=== PATIENT | male | born 1985 | race Caucasian/White ===

== ENCOUNTER 2017-06-07 00:28 | Emergency (ER) | payer OTHER ==
[~2017-06-07] VITALS: Ht 185.4 cm; Wt 95.3 kg
[2017-06-07 00:28] VITALS: BP 141/89
--- NOTE | 2017-06-07 00:56 | NUR ---
LAVAGE TO L EAR, LARGE AMOUNT WAX REMOVED, ER AWARE
== END 2017-06-07 01:08 | disposition home or self-care (01) ==
LOC: ER 00:30
DX: H61.22 Impacted cerumen, left ear (principal); B35.3 Tinea pedis; F10.10 Alcohol abuse, uncomplicated
CPT/HCPCS: 99283; A4606; Z7610

== ENCOUNTER 2018-10-10 21:29 | Emergency (ER) | payer OTHER ==
[~2018-10-10] VITALS: Ht 193 cm; Wt 86.2 kg
--- NOTE | 2018-10-10 21:42 | NUR ---
LFA REDNESS, SWELLING, PAIN S/P IV METH USE X2 DAYS. PT IS HOMELESS, BEEN ON THE STREETS X1 MONTH. PT IS AOX4, AMB, HYPERTENSIVE, TACHYCARDIC, RR EVEN AND UNLABORED ON RA. NO ACUTE DISTRESS NOTED. READY FOR EVAL.
[2018-10-10] MEDS ORDERED: KETOROLAC TROMETHAMINE INJ 30 MG/ML VIAL ONE (21:52)
[2018-10-10] MEDS ORDERED: KETOROLAC TROMETHAMINE INJ 30 MG/ML VIAL IV ONE (22:00)
[2018-10-10] MEDS ORDERED: CLINDAMYCIN 600 MG in IV D5W 100 ML IV ONE (22:00)
[2018-10-10] MEDS ORDERED: IV NS 0.9% 1,000 ML BAG IV ONE (22:00)
[2018-10-10 22:02] LABS: BASOPHILS % (AUTO) 0.2 % (0.0-2.0); HEMATOCRIT 40 % (39-51); HEMOGLOBIN 13.9 g/dL (13.5-17.5); LYMPHOCYTES # (AUTO) 0.9 /CMM (0.8-4.8); LYMPHOCYTES % (AUTO) 6.5 % (20.0-44.0); MEAN CORPUSCULAR HGB CONC 35 g/dl (31.0-36.0); MEAN CORPUSCULAR VOLUME 88 fL (80-96); MONOCYTES # (AUTO) 1.1 /CMM (0.1-1.30); MONOCYTES % (AUTO) 7.5 % (2.0-12.0); NEUTROPHILS # (AUTO) 12.2 /CMM (1.8-8.9); NEUTROPHILS % (AUTO) 85.8 % (43.0-81.0); PLATELET COUNT (AUTO) 254 /CMM (150-450); RED BLOOD CELL COUNT(AUTO) 4.54 MIL/uL (4.5-6.0); WHITE BLOOD COUNT (AUTO) 14.3 K/uL (4.3-11.0)
[2018-10-10] MEDS ORDERED: CLINDAMYCIN 900 MG/6 ML VIAL ONE (22:02)
[2018-10-10 22:12] LABS: CALCIUM, SERUM 8.9 mg/dL (8.5-10.1); CREATININE 0.9 mg/dL (0.6-1.3); POTASSIUM 3.6 mmol/L (3.5-5.1)
--- NOTE | 2018-10-10 22:17 | NUR ---
IV LINE ESTABLISHED AND MEDS GIVEN. IVF AND ABX INFUSING. WILL CONT TO MONITOR.
[2018-10-10 22:18] LABS: ALBUMIN 3.4 g/dL (3.4-5.0); BILIRUBIN,TOTAL 1.5 mg/dL (0.2-1.0); TOTAL PROTEIN, SERUM 7.5 g/dL (6.4-8.2)
[2018-10-10] MEDS ORDERED: LIDOCAINE 1%-EPI 1:100,000 20 ML VIAL ONE (22:31)
--- NOTE | 2018-10-10 22:43 | NUR ---
SHEN LEE AT BEDSIDE FOR I&D
--- NOTE | 2018-10-10 22:51 | NUR ---
[employer] AT BEDSIDE FOR WOUND DRESSING
[2018-10-10] MEDS ORDERED: SULFAMETH/TRIMETH 800/160 MG 1 UDTAB TABLET PO ONE ×2 (22:56→23:00)
[2018-10-10] MEDS ORDERED: CEPHALEXIN MONOHYDRATE 500 MG CAPSULE PO ONE ×2 (22:56→23:00)
--- NOTE | 2018-10-10 23:28 | NUR ---
IV removed. Catheter intact and site benign. Pressure and 4x4 applied to site. No bleeding noted.Patient discharged to home in stable condition. Written and verbal after care instructions given. Patient verbalizes understanding of instruction.
[2018-10-10 23:30] VITALS: BP 142/86
== END 2018-10-10 23:30 | disposition home or self-care (01) ==
LOC: ER 21:29
DX: L02.414 Cutaneous abscess of left upper limb (principal); L03.114 Cellulitis of left upper limb; F19.10 Other psychoactive substance abuse, uncomplicated; F17.210 Nicotine dependence, cigarettes, uncomplicated; Z59.0 Homelessness
CPT/HCPCS: 36415; 80053-TC; 85025-TC; A6402; J1885; J3490; J7030; J7060

== ENCOUNTER 2018-10-13 14:27 | Emergency (ER) | payer OTHER ==
[~2018-10-13] VITALS: Ht 185.4 cm; Wt 69.4 kg
[2018-10-13 14:31] VITALS: BP 125/66
--- NOTE | 2018-10-13 15:11 | NUR ---
Pt for discharge- ACI given refusing assisted placement and wants to go back to previous living condition. Ambulatory, stable No obvious distress.
== END 2018-10-13 15:14 | disposition home or self-care (01) ==
LOC: ER 14:31
DX: L02.414 Cutaneous abscess of left upper limb (principal); F19.10 Other psychoactive substance abuse, uncomplicated; F10.10 Alcohol abuse, uncomplicated; F17.210 Nicotine dependence, cigarettes, uncomplicated; Y90.9 Presence of alcohol in blood, level not specified; Z59.0 Homelessness
CPT/HCPCS: 99281; A4606; A6402

== ENCOUNTER 2018-10-30 17:47 | Emergency (ER) | payer OTHER ==
[~2018-10-30] VITALS: Ht 193 cm; Wt 79.4 kg
[2018-10-30 17:47] VITALS: BP 160/99
--- NOTE | 2018-10-30 19:21 | NUR ---
CALLED PT NAME IN WR X3. NO ONE RESPONDED. WILL FOLLOW UP.
--- NOTE | 2018-10-30 19:33 | NUR ---
CALLED PT NAME IN WR X3. NO ONE RESPONDED. WILL FOLLOW UP.
--- NOTE | 2018-10-30 20:07 | NUR ---
CALLED PT NAME IN WR X3. NO ONE RESPONDED.
== END 2018-10-30 20:10 | disposition left against medical advice (07) ==
LOC: ER 17:50
DX: Z53.21 Procedure and treatment not carried out due to patient leaving prior to being seen by health care provider (principal)